=== PATIENT | male | born 1975 | race Two or more races ===

== ENCOUNTER 2020-06-12 11:40 | Outpatient (REF) | payer OTHER, SELFPAY | END 2020-06-12 11:41 | disposition home or self-care (01) | LOC: HO.LAB 11:40 | PROVIDERS: Visit Provider Internal Medicine | DX: Z20.828 Contact with and (suspected) exposure to other viral communicable diseases (principal) | CPT/HCPCS: C9803; U0003 ==

== ENCOUNTER 2021-05-05 22:15 | Emergency (ER) | payer OTHER, SELFPAY ==
[2021-05-05 22:37] VITALS: BP 142/78; PULSE 60; RESP 16; TEMP 37.1; O2SAT 99; BMI 32.8
--- NOTE | 2021-05-05 23:07 | ED.SKABFB ---
HPI - Skin/Abscess/Foreign Bdy General Chief complaint: Extremity Injury, Lower Stated complaint: INGROWN TOE Time Seen by Provider: 05/05/21 23:07 Source: patient Mode of arrival: ambulatory Limitations: no limitations History of Present Illness MD complaint: lesion Onset (ago): month(s) (2) Location: R foot Severity: moderate Quality: dull Pain Consistency: intermittent Relieving factors: none Exacerbating factors: palpation Context: other (hard area ?ingrown toenail) Associated symptoms: denies other symptoms Related Data Allergies Allergy/AdvReac Type Severity Reaction Status Date / Time No Known Allergies Allergy Unverified 04/13/20 16:45 Fruits ( Apples) Allergy Unknown Uncoded 03/18/18 00:00 Review of Systems Review of Systems: Constitutional : No Fever, No Chills Respiratory : No Cough, No Sputum Gastrointestinal : No Nausea, No Vomiting, No Diarrhea Genitourinary : No Dysuria, No Hematuria Musculoskeletal : No joint pain, No Myalgias, No Joint Swelling Skin : pos Skin Lesions, positive skin rash PMFSH Past Medical History Attestation statement: The following information was validated with the patient. Social History Social History (Updated 05/05/21 @ 23:15 by Angie Valerio DO) Patient Tobacco Use Status: Never used Tobacco Advance Directives: No Advance Directives Information Provided: Yes Physical Exam Vital Signs: Vital Signs: Last Vital Signs Temp 98.7 F 05/05/21 22:37 Pulse 60 05/05/21 22:37 Resp 16 05/05/21 22:37 BP 142/78 H 05/05/21 22:37 Pulse Ox 99 05/05/21 22:37 Body Mass Index 32.8 Appearance: Alert. Oriented X3. No acute distress. Eyes: Pupils equal, round and reactive to light. Neck: Normal inspection. Neck supple. CVS:. Pulses normal. Respiratory: No respiratory distress. Skin: Skin warm and dry. Normal skin color. Extremities: No lower extremity edema. R little toe hard thickened 0.5cm circular area protruding out of lateral aspect distal area of nail appears to be a corn Neuro: Oriented X 3. No motor deficit. No sensory deficit. MDM - Skin/Abscess/Foreign Bdy MDM Narrative Medical decision making narrative: 46 yo male 2 months of R little toe pain from ?ingrown nail - there are no signs of infection it appears to be a hard corn - offered to remove part of the corn the patient agrees at this time. no other complaints, will refer to podiatry Procedures Procedure Narrative Procedure Narrative: verbal consent, betadine used, bluntly dissected with forceps and removed hard corn from lateral aspect of R little toe - no bleeding, cleaned and dressed, patient tolerated well Discharge Plan Discharge Clinical Impression: [place] of toe Patient Disposition: Home, Self-Care Additional Instructions: return to ED for any worsening symptoms or concerns CORN WAS REMOVED - MONITOR FOR REDNESS, SWELLING, FEVERS, YELLOW DRAINAGE KEEP CLEAN DRY AND COVERED FOR 5 DAYS Referrals: Mikhail Ray [Physician] - 2 weeks Print Language: [place]
== END 2021-05-05 23:28 | disposition home or self-care (01) ==
PROVIDERS: Emergency Provider Emergency Medicine
DX: L84 Corns and callosities (principal); L60.0 Ingrowing nail; M79.671 Pain in right foot
CPT/HCPCS: 11420; 99283

== ENCOUNTER 2021-07-30 09:01 | Outpatient (REF) | payer OTHER, SELFPAY ==
[2021-07-30 09:20] LABS: MANUAL DIFF FLAG NO
[2021-07-30 10:06] LABS: Basophils Percent Auto 0.7 % (0-2); Eosinophils Absolute Auto 0.1 X10*3/uL (0.0-0.4); Eosinophils Percent Auto 1.9 % (0-4); Hematocrit 46.8 % (42.0-52.0); Hemoglobin 15.4 g/dl (14.0-18.0); Imm Gran Abs Auto 0.02 X10*3/uL (0.00-0.03); Imm Gran Pct Auto 0.3 % (0.0-0.4); Lymphocytes Absolute Auto 2.2 X10*3/uL (1.2-4.9); Lymphocytes Percent Auto 37.6 % (20-40); Mean Corpuscular HGB Conc 32.9 g/dl (31.0-36.0); Mean Corpuscular Hemoglobin 30.7 pg (27.0-33.0); Mean Corpuscular Volume 93.2 fL (80.0-98.0); Mean Platelet Volume 13.3 fL (9.4-12.4); Monocytes Absolute Auto 0.6 X10*3/uL (0.1-1.2); Monocytes Percent Auto 9.9 % (2-11); Neutrophils Absolute Auto 2.9 x10*3/uL (2.0-8.3); Neutrophils Percent Auto 49.6 % (45-73); Platelet Count 221 X10*3/uL (160-400); Red Blood Count 5.02 X10*6/uL (4.60-5.80); Red Cell Distribution Width 12.1 % (11.0-16.0); White Blood Count 5.9 X10*3/uL (4.8-10.8)
[2021-07-30 10:36] LABS: Appearance Urine CLEAR; Color Urine YELLOW; Glucose Urine UA NEG (NEG); Leukocyte Esterase Urine NEG (NEG); Nitrite Urine NEG (NEG); Specific Gravity - Urine 1.025 (1.005-1.025); Urine Blood NEG (NEG); Urine Ketones NEG (NEG); Urine Protein NEG (NEG-TRACE)
[2021-07-30 10:48] LABS: TSH reflex Free T4 2.28 uIU/mL (0.32-4.0)
[2021-07-30 10:49] LABS: Alanine Aminotransferase 46 U/L (0-40); Albumin Level 4.3 g/dL (3.5-5.0); Alkaline Phosphatase 64 U/L (39-117); Anion Gap 10 (12-20); Aspartate Amino Transferase 26 U/L (5-37); Bilirubin Total 0.6 mg/dL (0.0-1.0); Blood Urea Nitrogen 18 mg/dL (9-16); Calcium 9.3 mg/dL (8.4-10.2); Carbon Dioxide 29 mmol/L (22-29); Chloride 107 mmol/L (96-108); Cholesterol 170 mg/dL; Estimated Glomerular Filt Rate > 60; Glucose Fasting 98 mg/dL (60-99); HDL Cholesterol 34 mg/dL; LDL Cholesterol Calculated 112 mg/dl; Potassium 4.6 mmol/L (3.3-5.1); Sodium 141 mmol/L (135-145); Total Protein 7.3 g/dL (6.5-8.0); Triglycerides 122 mg/dL
== END 2021-07-30 09:02 | disposition home or self-care (01) ==
LOC: HO.LAB 09:01
PROVIDERS: PCP Nurse Practitioner Family; Visit Provider Nurse Practitioner Family
DX: Z12.5 Encounter for screening for malignant neoplasm of prostate (principal); I10 Essential (primary) hypertension; R35.0 Frequency of micturition; E78.00 Pure hypercholesterolemia, unspecified; Z76.89 Persons encountering health services in other specified circumstances
CPT/HCPCS: 36415; 80053; 80061; 81003; 84153; 84443; 85025

== ENCOUNTER 2021-08-15 15:03 | Outpatient (REF) | payer OTHER, SELFPAY ==
--- NOTE | ~2021-08-15 | XR_ITS ---
EXAMINATION: XR KNEE, RIGHT CLINICAL INFORMATION: Pain COMPARISON: None TECHNIQUE: Four views of the right knee. FINDINGS: No acute fracture or dislocation. Joint spaces and articular surfaces are maintained. Small marginal osteophytes present along the inferior patellofemoral joint and medial compartment. Large suprapatellar joint effusion. Soft tissues unremarkable. XR/XR knee RT 3V IMPRESSION: No acute fracture or dislocation. Large joint effusion.
== END 2021-08-15 15:04 | disposition home or self-care (01) ==
LOC: HO.XRAY 15:03
PROVIDERS: Visit Provider Nurse Practitioner Family
DX: M25.561 Pain in right knee (principal)
CPT/HCPCS: 73562

== ENCOUNTER → 2021-08-27 12:58 | Outpatient (BNVA) | payer OTHER, SELFPAY | PROVIDERS: PCP Nurse Practitioner Family; Visit Provider Physician Assistant | DX: S83.91XD Sprain of unspecified site of right knee, subsequent encounter (principal); M25.461 Effusion, right knee | CPT/HCPCS: 20610 ==

== ENCOUNTER 2022-09-24 10:17 | Outpatient (REF) | payer OTHER, SELFPAY ==
--- NOTE | ~2022-09-24 | FL_ITS ---
PROCEDURE: FL UPPER GI AIR-CONTRAST STUDY. BARIUM SWALLOW. CLINICAL INFORMATION: Unspecified foreign body in larynx causing other injury. Difficulty swallowing. COMPARISON: None TECHNIQUE: Routine upper GI air-contrast study was performed in upright and lying position. Barium swallow was performed following oral administration of thick barium and barium-coated turkey as solid food in upright view. FINDINGS: Following oral administration of thick barium and effervescent granules there is normal propagation of bolus from the oral cavity, pharynx, esophagus into stomach without any evidence of obstruction, narrowing or stricture. On oral administration of barium-coated turkey there is normal propagation of solid food from the oral cavity through the pharynx, esophagus into stomach. On placing patient supine and prone lying there is moderate gastroesophageal reflux with a small sliding hiatal hernia. The mucosal pattern of the stomach, duodenal bulb and the sweep is normal. Besides the small hiatal hernia rest o the course of the stomach, duodenal bulb and the sweep is normal. FL/FL upper GI w Ba Swallow IMPRESSION: Small sliding hiatal hernia with moderate gastroesophageal reflux. Rest of the upper GI and barium swallow is unremarkable.
== END 2022-09-24 10:18 | disposition home or self-care (01) ==
LOC: HO.XRAY 10:17
PROVIDERS: PCP Internal Medicine; Visit Provider Nurse Practitioner Family
DX: T17.308A Unspecified foreign body in larynx causing other injury, initial encounter (principal)
CPT/HCPCS: 74240